=== PATIENT | male | born 2000 | race Caucasian/White ===

== ENCOUNTER 2020-12-20 14:50 | Emergency (ER) | payer OTHER ==
[~2020-12-20 14:50] MED LIST: IBUPROFEN800 MG PO
[2020-12-20 16:23] LABS: BASOPHIL 0.3 % (0-2); EOSINOPHIL 0.6 % (0-5); HCT 40.9 % (42.0-52.0); HGB 13.7 g/dl (13.2-18.0); LYMPHOCYTE 6.6 % (15-48); MCH 28.5 pg (25.0-31.0); MCHC 33.5 g/dL (32.0-36.0); MCV 85.2 fL (78.0-100.0); MONOCYTE 5.9 % (0-12); MPV 10.1 fL (6.0-9.5); NEUTROPHIL 86.3 % (41-80); NRBC 0; PLT 196 K/uL (150-400); RDW 14.5 % (11.5-14.0); WBC 7.2 K/uL (4.0-10.5)
[2020-12-20 17:45] LABS: ALBUMIN 3.9 g/dL (3.4-5.0); BILIRUBIN - TOTAL 0.7 mg/dL (0.2-1.0); BUN/CREAT RATIO (CALC) 15.5 RATIO; CREATININE 0.84 mg/dL (0.67-1.17); GLOBULIN (CALCULATION) 3.9 g/dL; POTASSIUM 3.6 mmol/L (3.5-5.1); TOTAL PROTEIN 7.8 g/dL (6.4-8.2)
[2020-12-20] MEDS ORDERED: ZOFRAN4 M1 PO (17:53)
== END 2020-12-20 18:11 | disposition home or self-care (01) ==
LOC: FER 14:50
PROVIDERS: Nurse Practitioner Family
DX: R11.2 Nausea with vomiting, unspecified (principal); R19.7 Diarrhea, unspecified; Z88.0 Allergy status to penicillin
CPT/HCPCS: 36415; 80053; 83690; 85025; J2405; J7030